=== PATIENT | male | born 1980 ===

== ENCOUNTER 2025-03-23 07:37 | Day surgery (SDC) | payer OTHER ==
[2025-03-15 13:02] VITALS: BP 121/83
[~2025-03-23] VITALS: Ht 167.6 cm; Wt 77.6 kg
[2025-03-23] MEDS ORDERED: CEFAZOLIN SODIUM 1,000 MG VIAL ONE (10:23)
[2025-03-23] MEDS ORDERED: POVIDONE-IODINE 118 ML BOTT TOP ONE (12:01)
[2025-03-23] MEDS ORDERED: LIDOCAINE HCL 1%/EPINEPHRINE 20ML VIAL IJ ONE (12:01)
[2025-03-23] MEDS ORDERED: EPINEPHRINE HCL/PF 1 MG/ML AMPUL ONE (12:01)
[2025-03-23] MEDS ORDERED: AMOX-CLAV 875-1 EAC1 PO (15:06)
[2025-03-23] MEDS ORDERED: CIPROFLOXACIN2.5 ML OTIC (15:06)
== END 2025-03-23 16:50 | disposition home or self-care (01) ==
LOC: CIR.AMB 07:37
PROVIDERS: ATTEND Otolaryngology Otology & Neurotology
DX: H72.01 Central perforation of tympanic membrane, right ear (principal); H71.21 Cholesteatoma of mastoid, right ear